=== PATIENT | male | born 1980 | race Caucasian/White ===

== ENCOUNTER 2016-06-14 09:44 | Emergency (ER) | payer SELFPAY ==
[~2016-06-14] VITALS: Ht 170.2 cm; Wt 72.0 kg
[2016-06-14 09:48] VITALS: Ht 170.2 cm; Wt 72.0 kg
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
== END 2016-06-14 11:11 | disposition left against medical advice (07) ==
LOC: FTE 09:44
DX: S71.111A Laceration without foreign body, right thigh, initial encounter (principal); X99.9XXA Assault by unspecified sharp object, initial encounter
CPT/HCPCS: 99282